=== PATIENT | female | born 1980 | race African-American/Black ===

== ENCOUNTER 2019-06-12 09:37 | Emergency (ER) | payer SELFPAY ==
[~2019-06-12] VITALS: Ht 134.6 cm; Wt 74.3 kg
[2019-06-12 09:38] VITALS: BP 123/75
[2019-06-12] MEDS ORDERED: BENZONATATE 100MG CAPSULE PO ONE (10:30)
== END 2019-06-12 12:03 | disposition home or self-care (01) ==
LOC: ER 09:37
DX: J18.9 Pneumonia, unspecified organism (principal); Z90.49 Acquired absence of other specified parts of digestive tract; Z98.890 Other specified postprocedural states
CPT/HCPCS: 71045; 81025; 87804; 99284

== ENCOUNTER 2019-09-06 12:18 | Emergency (ER) | payer MEDICAID ==
[~2019-09-06] VITALS: Ht 162.6 cm; Wt 86.0 kg
[2019-09-06 12:23] VITALS: BP 100/62
[2019-09-06] MEDS ORDERED: AMOXICILLIN/POTASSIUM CLAVULANATE 875/125MG TAB PO ONE (13:45)
[2019-09-06] MEDS ORDERED: ACETAMINOPHEN WITH CODEINE 300/30MG TABLET PO ONE (13:45)
== END 2019-09-08 13:53 | disposition home or self-care (01) ==
LOC: ER 12:18
DX: S02.2XXA Fracture of nasal bones, initial encounter for closed fracture (principal); J44.9 Chronic obstructive pulmonary disease, unspecified; Z59.0 Homelessness; Z90.49 Acquired absence of other specified parts of digestive tract; Y04.0XXA Assault by unarmed brawl or fight, initial encounter; Y93.89 Activity, other specified; Y92.488 Other paved roadways as the place of occurrence of the external cause
CPT/HCPCS: 70486; 81025; 99284

== ENCOUNTER 2023-01-27 04:00 | Emergency (ER) | payer MEDICAID, OTHER ==
[~2023-01-27] VITALS: Ht 157.5 cm; Wt 72.0 kg
[2023-01-27 04:04] VITALS: O2SAT 96
[2023-01-27] MEDS ORDERED: ASPIRIN 81MG TABLET PO ONE (04:15)
[2023-01-27 05:25] LABS: BASOPHILS % 0.5 % (0.0-2.0); EOSINOPHILS % 2.6 % (0.0-5.0); HEMATOCRIT. 34.6 % (36.0-48.0); HEMOGLOBIN. 11.4 g/dL (12.0-16.0); MEAN CORPUSCULAR HEMOGLOBIN 27.6 pg (28.0-32.0); MEAN CORPUSCULAR HGB CONC 32.8 g/dL (31.0-37.0); MEAN CORPUSCULAR VOLUME 84.1 fL (81.0-99.0); MEAN PLATELET VOLUME 7.1 fl (7.4-10.4); MONOCYTES % 10.2 % (2.0-8.0); NEUTROPHILS % 53.7 % (40.0-76.0); PLATELET 312 x1000/uL (130-400); RED BLOOD CELL COUNT 4.11 mill/uL (4.2-5.4); RED CELL DISTRIBUTION WIDTH 16.3 % (11.6-14.6); WHITE BLOOD COUNT 5.1 x1000/uL (4.5-11.0)
[2023-01-27 05:32] LABS: CHLORIDE 110 mEq/L (98-107); INDEX HEMOLYSI 1 (1-3); INDEX ICTERIC 1 (1-4); INDEX LIPEMIC 1 (1-3); POTASSIUM 3.5 mEq/L (3.5-5.1); SODIUM 139 mEq/L (136-145)
[2023-01-27 05:46] LABS: ALANINE AMINOTRANSFERASE 25 IU/L (13-61); ALBUMIN 3.2 g/dL (3.4-5.0); ASPARTATE AMINOTRANSFERASE 12 IU/L (15-37); BILIRUBIN TOTAL 0.2 mg/dL (0.1-1.0); CARBON DIOXIDE 24 mEq/L (21-32); CREATININE 0.7 mg/dL (0.6-1.3); GLUCOSE 94 mg/dL (70-105); NT PRO B-TYPE NATRIURETIC PEP 24 pg/mL (5-125); PROTEIN TOTAL 6.8 g/dL (6.0-8.3); TROPONIN I HIGH SENSITIVITY 5 ng/L (<54); UREA NITROGEN BLOOD 5 mg/dL (7-21)
[2023-01-27] MEDS ORDERED: IBUPROFEN 600MG TABLET PO ONE (06:30)
[2023-01-27 08:21] LABS: TROPONIN I HIGH SENSITIVITY 5 ng/L (<54)
[2023-01-27 10:05] VITALS: BP 117/72; PULSE 99; RESP 16; TEMP 98.8
== END 2023-01-27 10:36 | disposition home or self-care (01) ==
LOC: ER 04:00
DX: B34.9 Viral infection, unspecified (principal); J44.1 Chronic obstructive pulmonary disease with (acute) exacerbation; Z20.822 Contact with and (suspected) exposure to COVID-19; Z90.49 Acquired absence of other specified parts of digestive tract; Z98.890 Other specified postprocedural states
CPT/HCPCS: 80053; 83880; 85025; 84484; 87804 ×2; 36415; 71045; 93005; 99285; 87426; C9803; Z7610 ×2

== ENCOUNTER 2024-04-24 04:35 | Emergency (ER) | payer MEDICAID, OTHER ==
[~2024-04-24] VITALS: Ht 165.1 cm; Wt 68.0 kg
[2024-04-24 05:48] VITALS: PULSE 105; RESP 18; O2SAT 98
[2024-04-24] MEDS: IPRATROPIUM/ALBUTEROL 0.5-3(2.5)MG/3ML NEB HHN ONE (05:48)
[2024-04-24] MEDS: PREDNISONE 20MG TABLET PO ONE (06:15)
[2024-04-24 08:44] VITALS: BP 110/70; PULSE 91; RESP 18; TEMP 37.11408; O2SAT 98
[2024-04-24] MEDS ORDERED: P50 MT (08:51)
== END 2024-04-24 09:17 | disposition home or self-care (01) ==
LOC: ER 04:35
DX: J44.1 Chronic obstructive pulmonary disease with (acute) exacerbation (principal); J06.9 Acute upper respiratory infection, unspecified; F17.200 Nicotine dependence, unspecified, uncomplicated; Z90.49 Acquired absence of other specified parts of digestive tract; Z98.890 Other specified postprocedural states
CPT/HCPCS: 71045; 94640; 99283; J7512; Z7610 ×3